=== PATIENT | female | born 1965 | race Caucasian/White ===

== ENCOUNTER 2019-11-30 22:25 | Inpatient (IN) | payer OTHER ==
[~2019-11-30] VITALS: Ht 157.5 cm; Wt 61.0 kg
[2019-11-30 23:00] VITALS: BP 117/75
--- NOTE | 2019-11-30 23:30 | NUR ---
ADMISSION NOTES: RECEIVED REPORT FROM EFRAIN SMITH FROM [facility]. PT ARRIVED AT THE UNIT AT 2300 VIA GURNEY ACCOMPANIED BY EMT. PT IS A/O X4, ON RA, RESPIRATIONS EVEN AND UNLABORED, DENIES ANY PAIN, C/O BEING NAUSEATED. IV ACCESS ON RIGHT FA G 20 PATENT AND FLUSHING WELL, ON HL. SKIN ASSESSMENT PERFORMED, NO SKIN ISSUES NOTED. INVENTORY OF BELONGINGS MADE BY BRIEN ADAMS AND WITNESSED BY RN. PT BROUGHT MEDICATIONS FROM HOME, STATED HER FIANCE WILL SKILL LABOR THE MEDS TOMORROW AFTERNOON AND PT REFUSING FOR MEDS TO BE SENT TO PHARMACY THERE WAS EPISODE THAT HER MEDS GOT LOST. ORIENTED PT TO UNIT POLICY AND HOURLY ROUNDING, USE OF CALL LIGHT SYSTEM, PROVIDED ADMISSION HYGIENE KIT. VS TAKEN AND RECORDED. MRSA SWAB PERFORMED.PMHX OF BREAST CA WITH BILATERAL MASTECTOMY, RECONSTRUCTION, FULL HYSTERECTOMY AND FIBROID REMOVAL. PT CLAIMED NO MORE MENSTRUAL PERIOD EVER SINCE HYSTERECTOMY PERFORMED. COLONOSCOPY PERFORMED 2YRS AGO FOUND POLYPS IN COLON. ENDOSCOPY DONE 4MOS AGO IN [facility] RESULT IS GASTRITIS. SAFETY PRECAUTIONS FOR FALL INITIATED, CALL LIGHT IN REACH. WILL CONTINUE MONITORING PT.
[2019-12-01] MEDS ORDERED: FAMO-131 PO (00:07)
[2019-12-01] MEDS ORDERED: DILT180C93 PO (00:07)
[2019-12-01] MEDS ORDERED: estradiol TP (00:07)
[2019-12-01] MEDS ORDERED: FLUTICASONE (00:07)
[2019-12-01] MEDS ORDERED: ALBU18HF2 IH (00:07)
[2019-12-01] MEDS ORDERED: PROG25PO MC (00:07)
[2019-12-01] MEDS ORDERED: THYR30TA2 PO (00:07)
[2019-12-01] MEDS ORDERED: LORA-259 PO (00:07)
[2019-12-01] MEDS ORDERED: [UNRECOGNIZED DRUG - OTHER] PO (00:07)
--- NOTE | 2019-12-01 00:20 | NUR ---
RN NOTES: NOTIFIED EPIC MD SLIVER CHOPPER REGARDING PT'S ARRIVAL, AND RECENT VS, INCLUDING INPUTTING ALL HOME MED LIST AND ALLERGY IN THE COMPUTER. PER MD, HE WILL GET TO IT.
--- NOTE | 2019-12-01 00:26 | NUR ---
RN NOTES: RECEIVED CALL FROM [facility]PITAL[facility]. READ TO MD REGARDING RESULT OF LABS, IMAGING, CT RESULT FROM [facility]. INFORMED MD PT C/O NAUSEA, PER MD TO ORDER ZOFRAN 4MG IVP Q4HRS PRN FOR N/V. STATED HE WILL BE WORKING ON HIS ORDERS SOON. PER MD,THESE WERE CHRONIC ISSUES AND CAN BE DEAL OUTPATIENT.
[2019-12-01] MEDS ORDERED: ONDANSETRON HCL/PF 4 MG/2 ML VIAL IV PRN (00:30)
--- NOTE | 2019-12-01 01:30 | NUR ---
RN NOTES: PLACED PT ON NPO
--- NOTE | 2019-12-01 02:03 | NUR ---
RN NOTES: PT SLEEPING, APPEARS CALM AND COMFORTABLE
[2019-12-01] MEDS ORDERED: Z GUARD REMEDY 2 OZ OINT TP PRN (03:00)
[2019-12-01] MEDS ORDERED: ONDANSETRON HCL/PF 4 MG/2 ML VIAL IVP PRN (03:00)
[2019-12-01] MEDS ORDERED: ALBUTEROL SULFATE INH 18 GM HFA.AER.AD IH PRN ×2 (03:00→04:00)
[2019-12-01] MEDS ORDERED: ACETAMINOPHEN 325 MG TABLET PO PRN (03:00)
--- NOTE | 2019-12-01 03:00 | NUR ---
RN NOTES: NPO FOR HIDA SCAN IN AM.
--- NOTE | 2019-12-01 03:27 | NUR ---
rn notes:' precaution for left arm posted, no bp/iv/blood draw on left arm.
--- NOTE | 2019-12-01 03:52 | NUR ---
RN NOTES: VERIFICATION OF ALBUTEROL: PER PT SHE TAKES ALBUTEROL HFA INHALER, 2PUFF INHALATION Q4RS PRN FOR SOB. INFORMED , OKAY TO CONTINUE HOME LIST.
[2019-12-01] MEDS: IV D5/0.45 NACL 1,000 ML IV PRN ×2 (04:02→21:31)
[2019-12-01] MEDS ORDERED: ALBUTEROL FS 2.5 MG/3 ML VIAL.NEB NEB PRN (04:42)
--- NOTE | 2019-12-01 07:30 | NUR ---
MS/RN Opening note Patient received from shift supervisor rn. A/OX4, extremely anxious at this time, reassurance rendered. Vital signs recorded, hypertensive at 141/98, blood pressure medication to be administered. IV fluids infusing at 75ml/hr via right forearm heplock, no signs of infiltration seen. Call light within reach, side rails X2 in upright position, bed in low settimg. Will continue to monitor and ensure safety.
--- NOTE | 2019-12-01 07:34 | NUR ---
end of shift report: pt remains a/o x4, cooperative and calm. no untoward behavior noted throughout the shift. on npo for hida scan in am, consent signed by pt. iv access remains patent and flushing well, infusing with ivf as ordered. pt continent, ambulatory, independent with adls. vs remains stable, needs attended. vs remains stable, needs attended. ,safety precautions for fall remains engaged, call light in reach, will endorse to day rn for continuity of care.
[2019-12-01 08:00] VITALS: BP_SYST 141; BP_DIAS 88; BP_DIAS 98
[2019-12-01] MEDS: THYROID 30 MG TABLET PO SCH (08:11)
[2019-12-01] MEDS: PANTOPRAZOLE 40 MG TABLET.DR PO SCH (08:11)
[2019-12-01] MEDS: FAMOTIDINE (20 MG) 20 MG TABLET PO SCH ×2 (08:11→16:32)
[2019-12-01] MEDS: DILTIAZEM HCL CD 180 MG PO SCH (08:11)
[2019-12-01] MEDS: LORAZEPAM 1 MG TABLET PO PRN (09:05)
--- NOTE | 2019-12-01 09:32 | NUR ---
MS/RN HIDA scan HIDA scan order changed to stat at request of facility maintenance technician as routine order will not be carried out until Tuesday.
--- NOTE | 2019-12-01 13:00 | NUR ---
MS/RN Back to room Patient back to room following HIDA scan. no results as of yet.
--- NOTE | 2019-12-01 14:03 | NUR ---
NM HIDA SCAN WAS COMPLETED, TECH:RB
--- NOTE | 2019-12-01 15:00 | NUR ---
MS/RN HIDA result HIDA scan resulted as no evidence of common bile duct obstruction or acute cholecystitis.
[2019-12-01 16:00] VITALS: BP 118/70
--- NOTE | 2019-12-01 16:00 | NUR ---
MS/RN S/B Dr Menchaca Seen by Dr Menchaca - advance diet as tolerated, oain control and antiemetics.
--- NOTE | 2019-12-01 18:10 | NUR ---
MS/RN End note Patient remains in stable condition. Will endores to accounts receivable processor.
[2019-12-01 20:00] VITALS: BP 113/88
--- NOTE | 2019-12-01 20:34 | NUR ---
CUSTOMS EXAMINER: Received report from Paula SMITH at 1920. Pt a/o x4 on ra respirations even and unlabored. Pt iv access on right ac g 20 patent and flushing well, noted dry blood stained around tegaderm clear dressing, offered tegaderm to be change, bu pt refused. pt receiving d5 1/2 ns at 75ml/hr. s/p hida scan today, result came back negative for any obstruction. pt denies any pain or discomfort at this time. pt provided with toiletries and washcloth as she would like to do spongebath by herself. new gown provided. discussed plan of care to pt. pt agree. pt refused for home medications to be sent to [facility] as she stated there's an instance it was lost before. all home meds in sealed bag at pt's cassette in [facility] will grain picker. safety precautions for fall initiated, call light in reach, will continue monitoring pt. Addendum: 12/02/19 at 0031 by PAOLO OTTO RN correction of entry: pt's home med in a sealed bag located in [address] [place] [address].
--- NOTE | 2019-12-01 21:30 | NUR ---
rn notes: noted pt's odd behavior, needy, she is pleasant at one point then behavior will change instantly even after providing with all her needs. per hx, pt found to be etoh withdrawal, asked if she has any alcohol hx, pt claimed no, never been alcoholic or problem with alcohol. pt refused to have male sales account leader, switch sales account leader to female miki.
--- NOTE | 2019-12-01 22:15 | NUR ---
rn notes/epic paged: notified epic md documentation clerk regarding pt's request for benadryl. pt stated she normally takes benadryl to help her sleep. she added she never taken any ambien from the past, and only wants benadryl for sleeping aid. awaiting md to call back.
--- NOTE | 2019-12-01 22:36 | NUR ---
rn notes/iv dressing change: pt finally agree to have tegaderm change, noted dry blood around site. new transparent dressing applied, iv access remains patent and flushing well, no s/s of iv infiltration noted.
--- NOTE | 2019-12-01 22:56 | NUR ---
rn notes/benadyl order: received telephone order from [facility] md bus driver/monitor to give benadryl 50mg ivp one time dose. pt requested for sleep.
[2019-12-01] MEDS ORDERED: diphenhydrAMINE HCL 50 MG/ML VIAL IV ONE (23:00)
--- NOTE | 2019-12-01 23:14 | NUR ---
one time dose benadryl ivp: one time dose order for benadryl 50 mg ivp administered to pt, requested for sleeping aid.
--- NOTE | 2019-12-01 23:30 | NUR ---
rn notes: switched scd machine, as the previous scd machine/motor only one leg working. also pt c/o luq abdl pain, informed pt since she just received benadryl 50mg ivp at 2314, it needs a space/room of 1hr before administering pain medication as both medication has sedative properties.
[2019-12-02] VITALS: BP 120/75
[2019-12-02] MEDS: MORPHINE SULFATE INJ 4 MG/ML DISP.SYRIN IV PRN ×2 (00:18→04:19)
--- NOTE | 2019-12-02 00:24 | NUR ---
prn morphine: pt c/o luq pain radiating to lower back described as sharp burning, requesting for morphine, prn morphine 4mg ivp administered to pt at this time, education provided to pt regarding medication side effect, will continue to monitor and reassess pt.
--- NOTE | 2019-12-02 01:36 | NUR ---
rn notes: seen pt sleeping at this time, respirations even and unlabored, appears clam and comfortable, no sob noted,ongoing ivf.
--- NOTE | 2019-12-02 03:30 | NUR ---
rn notes: seen pt sleeping, appears calm and comfortable, no facial grimace noted. will continue monitoring pt.
[2019-12-02 04:00] VITALS: BP 128/88
--- NOTE | 2019-12-02 04:24 | NUR ---
prn morphinr: pt called crying, c/o 02/22 ruq-rlq, luq-llq pain radiating to lower back and down to her legs, prn morphine 4mg ivp administered to pt at this time. pt was then assisted to the restroom prior to giving pain medication. will continue to monitor and reassess pt.
--- NOTE | 2019-12-02 06:15 | NUR ---
rn notes: after blood draw, was approached by senior advocate that pt is crying complaining of pain on luq radiating to lower back and legs, went to the room, pt stating she feels like her potassium is low and that she's feeling nervous, feeling her bp is high. informed pt her pain meds is q4hrs and was last given at 0420am, only been 2hrs since last administration. informed pt i can call md to relay situation, possible anotehr pain medication to help manage her pain, but pt stated she needs her ativan for anxiety. asked pt which is best for her condition right now, and what's importance/priority for her, pain meds or anxiety meds, pt chose to get anxiety medication.
[2019-12-02] MEDS: LORAZEPAM 1 MG TABLET PO PRN (06:20)
--- NOTE | 2019-12-02 06:20 | NUR ---
prn ativan: pt c/o anxiety, crying stated she's in pain, that she feels like her potassium is low, asked to removed her scd stating its causing discomfort on her. prn ativan 0.5 mg tab administered to pt at this time.
[2019-12-02 06:39] VITALS: BP 144/97
--- NOTE | 2019-12-02 06:50 | NUR ---
end of shift report: prn morphine ivp administered for c/o luq pain radiating to lower back and legs. no reported nausea or vomiting throughout the shift.PRN ATIVAN ADMINISTERED FOR ANXIETY. rfa iv access remains patent and flushing well, infusing with d5 /12 ns at 75ml/hr. no s/s of iv infiltration noted.Still waiting for fiance to come to [place] [facility] meds, meds in [facility]. PLAN OF CARE: advanced diet as tolerated per hospitalist, possible dc plan. vs remains stable, needs attended. safety precautions for fall remains engaged, call light in reach, will endorse to day rn for continuity of care.
[2019-12-02 07:02] LABS: BASOPHILS % (AUTO) 0.8 % (0.0-2.0); EOSINOPHILS % (AUTO) 3.1 % (0.0-6.0); HEMATOCRIT 45 % (33-45); HEMOGLOBIN 14.7 g/dL (11.5-14.8); LYMPHOCYTES # (AUTO) 2.4 /CMM (0.8-4.8); MEAN CORPUSCULAR HGB CONC 33 g/dl (31.0-36.0); MEAN CORPUSCULAR VOLUME 96 fL (82-100); MONOCYTES # (AUTO) 0.5 /CMM (0.1-1.30); MONOCYTES % (AUTO) 10.3 % (2.0-12.0); NEUTROPHILS # (AUTO) 1.6 /CMM (1.8-8.9); NEUTROPHILS % (AUTO) 33.8 % (43.0-81.0); PLATELET COUNT (AUTO) 186 /CMM (150-450); RED BLOOD CELL COUNT(AUTO) 4.62 MIL/uL (4.0-5.2); WHITE BLOOD COUNT (AUTO) 4.7 K/uL (4.3-11.0)
--- NOTE | 2019-12-02 07:06 | NUR ---
MS RN NOTES PATIENT RECEIVED IN BED, SLEEPING, EASILY AWAKEN. ALERT AND ORIENTED X 4. PATIENT ON ROOM AIR WITH NO SIGNS OF RESPIRATORY DISTRESS NOTED, NO SOB PRESENT, AND WITH EVEN NON-LABORED BREATHING. PATIENT SKIN WARM AND DRY TO TOUCH. PATIENT IV ACCESS INTACT AND PATENT INFUSING D5 1/2 NORMAL SALINE AT 75ml/hr. PATIENT PRESENTS NO SIGNS OF PAIN OR DISCOMFORT AT THIS TIME. SAFETY PRECAUTIONS IMPLEMENTED WITH BED LOCKED, BED IN THE LOWEST POSITION, BILATERAL SIDE RAILS UP, AND CALL LIGHT WITHIN EASY REACH OF PATIENT. WILL CONTINUE TO MONITOR PATIENT.
[2019-12-02 07:07] LABS: CALCIUM, SERUM 8.1 mg/dL (8.5-10.1); CREATININE 0.4 mg/dL (0.6-1.3); MAGNESIUM 2.3 mg/dL (1.8-2.4); PHOSPHORUS 3.1 mg/dL (2.5-4.9)
[2019-12-02 07:11] LABS: POTASSIUM 2.8 mmol/L (3.5-5.1)
[2019-12-02 07:15] LABS: THYROID STIMULATING HORMONE 2.672 uIU/mL (0.358-3.74)
--- NOTE | 2019-12-02 07:20 | NUR ---
MS RN NOTES PATIENT'S POTASSIUM 2.8 REPORTED BY [facility]. CALLED AND INFORMED DR. LARON ABRAMS MD MADE AWARE AND ORDERED K DUR 80 meq PO. WILL FOLLOW ORDERS DIRECTED, AND CONTINUE TO MONITOR PATIENT.
[2019-12-02] MEDS ORDERED: POTASSIUM CHLORIDE 20 MEQ TAB.PRT.SR PO ONE (07:30)
[2019-12-02 08:00] VITALS: BP 136/88
[2019-12-02] MEDS: FAMOTIDINE (20 MG) 20 MG TABLET PO SCH (08:07)
[2019-12-02] MEDS: PANTOPRAZOLE 40 MG TABLET.DR PO SCH (08:09)
[2019-12-02] MEDS: THYROID 30 MG TABLET PO SCH (08:17)
--- NOTE | 2019-12-02 08:17 | NUR ---
MS RN NOTES PATIENT REFUSED THYROID MEDICATION 30mg PO. EDUCATED THE PATIENT THE BENEFITS OF MEDICATION MULTIPLE TIMES, HOWEVER PATIENT STILL REFUSING. WILL CONTINUE TO MONITOR PATIENT.
[2019-12-02 08:19] VITALS: BP 136/88
[2019-12-02] MEDS: IV D5/0.45 NACL 1,000 ML IV PRN (09:14)
[2019-12-02 09:22] VITALS: BP 129/99
[2019-12-02] MEDS: DILTIAZEM HCL CD 180 MG PO SCH (09:22)
--- NOTE | 2019-12-02 10:33 | NUR ---
MS RN NOTES PATIENT COMPLAINING OF NAUSEA, NO EMESIS PRESENT. PATIENT REQUESTING ZOFRAN TO HELP WITH HER NAUSEA, ADMINISTERED PRN IV ZOFRAN 4mg/2mL ORDERED. WILL CONTINUE TO MONITOR PATIENT.
--- NOTE | 2019-12-02 11:55 | NUR ---
MS RN NOTES PATIENT IV ACCESS OCCLUDED AND INFILTRATED. REMOVED IV ACCESS, CATHETER TIP INTACT AND APPLIED PRESSURE TO SITE. STARTED NEW IV ACCESS ON RIGHT HAND 22 gauge, NO SIGNS OF INFILTRATION, INTACT AND PATENT. WILL CONTINUE TO MONITOR PATIENT.
--- NOTE | 2019-12-02 15:01 | NUR ---
MS RN NOTES PATIENT ALERT AND ORIENTED X 4. PATIENT PRESENTS NO SIGNS AND SYMPTOMS OF RESPIRATORY DISTRESS. PATIENT DENIES ANY COMPLAINS OF PAIN OR DISCOMFORT. PATIENT AMBULATORY WITH STEADY GAIT. PATIENT MEDICALLY CLEARED FOR DISCHARGE. DISCHARGE INSTRUCTIONS PROVIDED TO PATIENT, AND PACKET GIVEN TO PATIENT, PATIENT VERBALIZED UNDERSTANDING. ALL BELONGINGS ACCOUNTED FOR AND LEFT WITH PATIENT. IV ACCESS REMOVED ON RIGHT HAND WITH CATHETER TIP INTACT AND APPLIED PRESSURE TO SITE. REMOVED ID BAND. PATIENT LEFT IN STABLE CONDITION AND PICKED UP BY BOYFRIEND.
== END 2019-12-02 15:00 | disposition home or self-care (01) ==
LOC: EDBD 22:40 → MED 22:40
DX: K80.20 Calculus of gallbladder without cholecystitis without obstruction (principal); K82.8 Other specified diseases of gallbladder; Z90.13 Acquired absence of bilateral breasts and nipples; Z85.3 Personal history of malignant neoplasm of breast; Z90.710 Acquired absence of both cervix and uterus; K29.70 Gastritis, unspecified, without bleeding; K21.9 Gastro-esophageal reflux disease without esophagitis; J45.909 Unspecified asthma, uncomplicated; I10 Essential (primary) hypertension; F41.9 Anxiety disorder, unspecified; D32.9 Benign neoplasm of meninges, unspecified
CPT/HCPCS: 36415; 78226; 80048-TC; 80061-TC; 83735-TC; 84100-TC; 84443-TC; 85025-TC; 87081-TC; A9537; G0378; J1200; J2270; J2405; J3490